=== PATIENT | female | born 1995 | race African-American/Black ===

== ENCOUNTER 2018-02-27 17:34 | Emergency (ER) | payer MEDICAID, OTHER ==
[~2018-02-27] VITALS: Ht 160 cm; Wt 78.5 kg
[2018-02-27 19:04] VITALS: BP 136/88
[2018-02-27] MEDS ORDERED: LIDOCAINE 1% (LOCAL ANESTH.) PF 5ml SDV IJ ONE ×2 (19:45→21:00)
[2018-02-27] MEDS ORDERED: cefTRIAXone SOD 1,000 MG VL IM ONE (19:45)
[2018-02-27] MEDS ORDERED: LIDOCAINE 1% (LOCAL ANESTH.) PF 5ml SDV ONE (20:22)
[2018-02-27] MEDS ORDERED: BACITRACIN TOP OINT 1 UD PKG TOP ONE ×2 (20:44→21:00)
== END 2018-02-27 19:52 | disposition home or self-care (01) ==
LOC: ER 17:41
DX: S61.411A Laceration without foreign body of right hand, initial encounter (principal); W26.9XXA Contact with unspecified sharp object(s), initial encounter; Y93.89 Activity, other specified; Y99.8 Other external cause status; Y92.89 Other specified places as the place of occurrence of the external cause
CPT/HCPCS: 12002; 96372; 99283; J0696

== ENCOUNTER 2019-01-30 19:37 | Emergency (ER) | payer MEDICAID ==
[~2019-01-30] VITALS: Ht 160 cm; Wt 76.2 kg
[2019-01-30 20:02] VITALS: BP 161/89
== END 2019-01-30 22:00 | disposition left against medical advice (07) ==
LOC: ER 19:42
DX: J45.909 Unspecified asthma, uncomplicated (principal); Z53.21 Procedure and treatment not carried out due to patient leaving prior to being seen by health care provider

== ENCOUNTER 2021-03-13 20:46 | Emergency (ER) | payer MEDICAID ==
[~2021-03-13] VITALS: Ht 160 cm; Wt 81.6 kg
[2021-03-13 23:36] LABS: Urine Bacteria MOD /hpf (None Seen); Urine Blood TRACE /uL (Negative); Urine Mucus FEW (None Seen); Urine Specific Gravity 1.014 (1.001-1.035); Urine WBC 39 /hpf (0 - 5)
[2021-03-13] MEDS ORDERED: cefTRIAXone SOD 1,000 MG VL IM ONE (23:45)
[2021-03-14 00:52] VITALS: BP 129/87
== END 2021-03-14 01:27 | disposition home or self-care (01) ==
LOC: ER 20:47
DX: R33.9 Retention of urine, unspecified (principal); N39.0 Urinary tract infection, site not specified
CPT/HCPCS: 51701; 74176; 81001; 81025; 87086; 96372; 99284; J0696